=== PATIENT | female | born 1990 | race Caucasian/White ===

== ENCOUNTER 2020-09-30 05:09 | Emergency (ER) | payer BC, SELFPAY ==
[2020-09-30] VITALS (7 sets, daily range): BP systolic 109–137; BP diastolic 62–88; PULSE 48–55; RESP 15–18; TEMP 36.8; O2SAT 95–98; BMI 33.3
[2020-09-30 06:24] LABS: Basophils % 0.3 %; Lymphocytes # 1.2 10^3/uL (0.8-4.8); Mean Corpuscular HGB Conc 32.5 g/dL (30.0-36.0); Mean Corpuscular Hemoglobin 28.4 pg (28.0-34.0); Mean Corpuscular Volume 87.5 fL (81-99); Mean Platelet Volume 10.7 fL (7.4-10.4); Monocytes # 0.3 10^3/uL (0.2-0.9); Monocytes % 2.2 %; Neutrophils % 88.1 %; Nucleated Red Blood Cells % 0 %; Platelet Count 292 10^3/cmm (130-400); Red Blood Count 4.57 10^6/uL (4.1-5.3); Red Cell Distribution Width 12.4 % (12.1-15.1); White Blood Count 13.4 10^3/uL (4.0-10.0)
[2020-09-30] MEDS: sodium chloride 0.9% 1,000 ML 999 ML IV ×2 (06:30→06:50)
[2020-09-30 06:40] LABS: HCG, Serum Qual Negative (Negative)
[2020-09-30 06:41] LABS: Alanine Aminotransferase 7 U/L (0-33); Albumin Level 4.4 g/dL (3.5-5.2); Alkaline Phosphatase 85 IU/L (35-105); Anion Gap 17.6 (5-19); Aspartate Amino Transferase 14 U/L (0-32); Blood Urea Nitrogen 11 mg/dL (6-20); C Reactive Protein 0.8 mg/L (0.0-4.9); Calcium 8.9 mg/dL (8.5-10.5); Carbon Dioxide 23 mmol/L (22-29); Chloride 107 mmol/L (98-107); Globulin 2.6 g/dL (1.3-4.6); Glomerular Filtration Rate 58.3 mL/min (90-130); Glucose 130 mg/dL (65-115); Lipase 15 U/L (13-60); Osmolality Calculated 297 mOsm/kg (285-295); Potassium 4.6 mmol/L (3.5-5.1); Sodium 143 mmol/L (136-145); Total Bilirubin 1.2 mg/dL (0.15-1.2)
[2020-09-30 06:46] LABS: Creatinine Clr Calc Pharmacy 83.2141
[2020-09-30] MEDS: ondansetron 2 mg/ML SDV 2 mL 4 MG IVP ×2 (06:50→07:14)
--- NOTE | 2020-09-30 06:51 | W.ED.BACK ---
HPI - Back Pain/Injury General: Chief Complaint: Back Pain/Injury Stated Complaint: n/v/r side pain Time Seen by Provider: 09/30/20 06:15 History of Present Illness: HPI Narrative: 29-year-old female presents to the emergency room with complaints of right upper quadrant nominal pain began 11 AM yesterday. Radiates into her back she denies any hematuria no dysuria urgency or frequency her last period was 2 weeks ago was normal for her. She not had any fever sweats chills she has had some vomiting but no diarrhea. No hx of renal stones. MD elicited complaint: back pain Onset (ago): hour(s) Timing: constant and progressively worsening Severity: severe Similar Symptoms Previously: No Quality: sharp Location: right flank Radiation: abdomen Exacerbating factors: eating Relieving factors: none Associated symptoms: Reports abdominal pain, myalgias and nausea; Deny arthralgias, chills, change in bowel habits, difficulty walking, dysuria, fatigue, fecal incontinence, fever(s), hematuria, numbness, syncope, tingling/numbness/burning, urinary frequency, urinary urgency, vomiting or weakness Work related injury: No Review of Systems Const: Denies: fever(s), chills or fatigue Card: Denies: syncope GI: Reports: abdominal pain and nausea; Denies: vomiting, fecal incontinence or change in bowel habits : Denies: dysuria, urinary urgency or hematuria Neuro: Denies: difficulty walking [facility] Female Reproductive History: Date of last menstrual period: 09/16/20 Physical Exam Const: COMMON NORMALS: no acute distress GENERAL APPEARANCE: cooperative and comfortable ORIENTATION/CONSCIOUSNESS: Yes awake, Yes oriented to person, Yes oriented to place and Yes oriented to time HENMT: COMMON NORMALS: normocephalic, atraumatic, hearing grossly normal bilaterally and external ears normal HEAD & SCALP: normocephalic and atraumatic EXTERNAL EAR: Yes external ears normal Neck/C-Spine: COMMON NORMALS: no JVD Resp: COMMON NORMALS: normal respiratory effort, No retractions, No use of accessory muscles and clear to auscultation bilaterally AUSCULTATION: clear to auscultation bilaterally Cardio: COMMON NORMALS: no JVD, regular rate, regular rhythm and No murmurs present (Cardio) RATE: regular rate RHYTHM: regular rhythm GI: AUSCULTATION: Yes normoactive bowel sounds PALPATION: Yes Tenderness to palpation present (GI) (Positive Monahan sign) Details: RUQ and No Guarding due to palpation present (GI) : BLADDER/KIDNEY EXAM: Yes CVA tenderness Back/Pelvis: GENERAL BACK: Yes CVA tenderness CVA tenderness: right Extremity: COMMON NORMALS: normal to inspection, capillary refill normal, no clubbing, cyanosis or edema, no calf tenderness and no pedal edema Neuro: SENSORIUM/ORIENTATION: Yes oriented to person, Yes oriented to place and Yes oriented to time Skin: COMMON NORMALS: no rashes or lesions noted GENERAL SKIN EXAM: no rashes or lesions noted Course Vital Signs: Vital signs: Vital Signs Temperature 98.2 F 09/30/20 05:46 Pulse Rate 51 L 09/30/20 09:03 Respiratory Rate 15 09/30/20 09:03 Blood Pressure 118/62 09/30/20 09:03 Pulse Oximetry 96 09/30/20 09:03 MDM - Back Pain/Injury MDM Narrative: Medical decision making narrative: CT shows right ureterolithiasis. We will go ahead and discharge her home her pain is controlled now discharged home with tamsulosin 1 hydrocodone Zofran strain urine follow-up with Dr. Hines. Lab Data: Labs: Lab Results 09/30/20 09/30/20 09/30/20 Range/Units 06:15 06:17 06:17 WBC 13.4 H (4.0-10.0) 10^3/ uL RBC 4.57 (4.1-5.3) 10^6/u L Hgb 13.0 (11.5-15.3) g/dL Hct 40.0 (37.0-47.0) % MCV 87.5 (81-99) fL MCH 28.4 (28.0-34.0) pg MCHC 32.5 (30.0-36.0) g/dL RDW 12.4 (12.1-15.1) % Plt Count 292 (130-400) 10^3/c mm MPV 10.7 H (7.4-10.4) fL Neut % (Auto) 88.1 % Lymph % (Auto) 9.0 % Tyrrell % (Auto) 2.2 % Eos % (Auto) 0.0 % Baso % (Auto) 0.3 % Neut # (Auto) 11.80 H (1.8-7.7) 10^3/u L Lymph # (Auto) 1.2 (0.8-4.8) 10^3/u L Tyrrell # (Auto) 0.3 (0.2-0.9) 10^3/u L Eos # (Auto) 0.0 (0.0-0.8) 10^3/u L Baso # (Auto) 0.0 (0.0-0.1) 10^3/u L Nucleated RBC % (a uto) 0 % Nucleated RBCs # 0.0 /100WBC Sodium 143 (136-145) mmol/L Potassium 4.6 (3.5-5.1) mmol/L Chloride 107 (98-107) mmol/L Carbon Dioxide 23 (22-29) mmol/L Anion Gap 17.6 (5-19) BUN 11 (6-20) mg/dL Creatinine 1.1 H (0.5-0.9) mg/dL GFR Calculation 58.3 L (90-130) mL/min Glucose 130 H (65-115) mg/dL Calculated Osmolal ity 297 H (285-295) mOsm/k g Calcium 8.9 (8.5-10.5) mg/dL Total Bilirubin 1.2 (0.15-1.2) mg/dL AST 14 (0-32) U/L ALT 7 (0-33) U/L Alkaline Phosphata se 85 (35-105) IU/L C-Reactive Protein 0.8 (0.0-4.9) mg/L Total Protein 7.0 (6.6-8.7) g/dL Albumin 4.4 (3.5-5.2) g/dL Globulin 2.6 (1.3-4.6) g/dL Lipase 15 (13-60) U/L HCG, Qual (Negative) Urine Color Dark yellow (Yellow) Urine Appearance Cloudy (CLEAR) Urine pH 9 H (5-7) Ur Specific Gravit y 1.010 (1.005-1.030) Urine Protein Neg (Negative) Urine Glucose (UA) Norm (Normal) Urine Ketones Negative (Negative) Urine Blood 3+ H (Negative) Urine Nitrate Negative (Negative) Urine Bilirubin Neg (Negative) Prot Sulfosalicyli c Acd Positive (Negative) Urine Urobilinogen Norm (Negative) mg/dL Ur Leukocyte Lakshmi ase Negative (Negative) Urine RBC 15-25 H (0-2) /hpf Urine WBC None (0-5) /hpf Ur Squamous Epith Cells 0-4 H (0-5) /hpf Amorphous Sediment Not Reportable Urine Bacteria Trace (NONE) /hpf Urine Mucus Trace /hpf 09/30/20 Range/Units 06:17 WBC (4.0-10.0) 10^3/ uL RBC (4.1-5.3) 10^6/u L Hgb (11.5-15.3) g/dL Hct (37.0-47.0) % MCV (81-99) fL MCH (28.0-34.0) pg MCHC (30.0-36.0) g/dL RDW (12.1-15.1) % Plt Count (130-400) 10^3/c mm MPV (7.4-10.4) fL Neut % (Auto) % Lymph % (Auto) % Tyrrell % (Auto) % Eos % (Auto) % Baso % (Auto) % Neut # (Auto) (1.8-7.7) 10^3/u L Lymph # (Auto) (0.8-4.8) 10^3/u L Tyrrell # (Auto) (0.2-0.9) 10^3/u L Eos # (Auto) (0.0-0.8) 10^3/u L Baso # (Auto) (0.0-0.1) 10^3/u L Nucleated RBC % (a uto) % Nucleated RBCs # /100WBC Sodium (136-145) mmol/L Potassium (3.5-5.1) mmol/L Chloride (98-107) mmol/L Carbon Dioxide (22-29) mmol/L Anion Gap (5-19) BUN (6-20) mg/dL Creatinine (0.5-0.9) mg/dL GFR Calculation (90-130) mL/min Glucose (65-115) mg/dL Calculated Osmolal ity (285-295) mOsm/k g Calcium (8.5-10.5) mg/dL Total Bilirubin (0.15-1.2) mg/dL AST (0-32) U/L ALT (0-33) U/L Alkaline Phosphata se (35-105) IU/L C-Reactive Protein (0.0-4.9) mg/L Total Protein (6.6-8.7) g/dL Albumin (3.5-5.2) g/dL Globulin (1.3-4.6) g/dL Lipase (13-60) U/L HCG, Qual Negative (Negative) Urine Color (Yellow) Urine Appearance (CLEAR) Urine pH (5-7) Ur Specific Gravit y (1.005-1.030) Urine Protein (Negative) Urine Glucose (UA) (Normal) Urine Ketones (Negative) Urine Blood (Negative) Urine Nitrate (Negative) Urine Bilirubin (Negative) Prot Sulfosalicyli c Acd (Negative) Urine Urobilinogen (Negative) mg/dL Ur Leukocyte Lakshmi ase (Negative) Urine RBC (0-2) /hpf Urine WBC (0-5) /hpf Ur Squamous Epith Cells (0-5) /hpf Amorphous Sediment Urine Bacteria (NONE) /hpf Urine Mucus /hpf Discharge Plan Discharge Patient Disposition: Home Clinical Impression: Right nephrolithiasis Condition: Stable Prescriptions: New hydrocodone-acetaminophen 5-325 mg tablet 1 tab PO Q6H PRN (Reason: pain) Qty: 20 RF: 0 Zofran 4 mg tablet 4 mg PO Q6H PRN (Reason: nausea and vomiting) Qty: 14 RF: 0 tamsulosin 0.4 mg capsule 0.4 mg PO DAILY Qty: 14 RF: 0 Discharge Orders: Discharge ED (Routine); Ordered 09/30/20 Ordered By: Crow Hinojosa Discharge Diet: Usual diet Patient Instructions: Opioid Safety Activity Restrictions/Additional Instructions: manager voice will call with follow-up with Dr. Hines. Strain urine until stone passes. 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
--- NOTE | 2020-09-30 06:53 | CTR_ITS ---
PROCEDURE INFORMATION: Exam: CT Abdomen And Pelvis With Contrast Exam date and time: 09/30/2020 6:53 AM Age: 29 years old Clinical indication: Abdominal pain; Prior surgery; Additional info: Abd pain TECHNIQUE: Imaging protocol: Computed tomography of the abdomen and pelvis with contrast. Radiation optimization: All CT scans at this facility use at least one of these dose optimization techniques: automated exposure control; mA and/or kV adjustment per patient size (includes targeted exams where dose is matched to clinical indication); or iterative reconstruction. Contrast material: OMNI 300; Contrast volume: 95 ml; Contrast route: INTRAVENOUS (IV); COMPARISON: No relevant prior studies available. RADIATION DOSE METRICS: Total DLP (mGy-cm): 1818.47 FINDINGS: Liver: Normal. No mass. Gallbladder and bile ducts: Normal. No calcified stones. No ductal dilation. Pancreas: Normal. No ductal dilation. Spleen: Small calcified splenic granuloma. A small inferior splenule is present. Adrenal glands: Normal. No mass. Kidneys and ureters: The right kidney shows moderate pelviectasis with mild perinephric stranding, with a 4.2 mm intraureteral calculus at the mid L3 level. Right renal posterior upper pole measuring 2.5 mm calyceal calculus. Left renal 4.4 mm benign cyst. Stomach and bowel: Unremarkable. No obstruction. No mucosal thickening. Appendix: The vermiform appendix is normal. Intraperitoneal space: Unremarkable. No free air. No significant fluid collection. Vasculature: Right pelvic calcified phlebolith. Lymph nodes: No enlarged lymph nodes. Urinary bladder: The urinary bladder is decompressed and difficult to assess. Reproductive: Right ovarian 18.4 mm physiologic follicle. Anterior lower uterine Caesarean section defect suggested (series 601, image 45). Bones/joints: Bilateral L5 spondylolysis. Soft tissues: Unremarkable. CT/CT abdomen pelvis w con* [id number] IMPRESSION: 1. Right obstructive uropathy secondary to an abdominal ureteral calculus. 2. Right renal calyceal lithiasis. 3. Left renal benign cyst. No follow-up imaging is recommended. COMMENTS: Consistent with the [employer]'s Incidental Findings Committee white paper (J Am Vivian Radiol 2018): Any incidental renal lesion less than 1 cm or classified as too small to characterize, or any incidental cystic renal lesion characterized as simple-appearing, is likely benign. No follow-up imaging is recommended for these lesions per consensus recommendations based on imaging criteria. Radiation Dose CTDIVOL = (mGy): DLP = 1818.47 (mGy-cm)
[2020-09-30] MEDS: iohexol 300 mg/mL 100 mL Btl IV (07:14)
[2020-09-30] MEDS: morphine 4 mg/mL SDV 1 mL IVP ×2 (07:15→08:34)
[2020-09-30 08:30] LABS: Glucose Urine UA Norm (Normal); Ketones Urine Negative (Negative); Protein Urine Neg (Negative); Urine Appearance Cloudy (CLEAR); Urine Color Dark Yellow (Yellow); pH Urine 9 (5-7)
[2020-09-30 08:31] LABS: Add Urine Culture? Yes; Add Urine Microscopic? YES; Bacteria Urine TRACE /hpf; Bilirubin Urine Neg (Negative); Blood Urine 3+ (Negative); Leukocyte Esterase Urine Negative (Negative); Mucus Urine TRACE /hpf; Nitrate Urine Negative (Negative); RBC Urine 15-25 /hpf (0-2); Squamous Epithelial Cell Urine 0-4 /hpf (0-5); Sulfosalicylic Acid Urine Positive (Negative); Urobilinogen Urine Norm (Negative)
--- NOTE | 2020-10-01 10:21 | DCPLANNER ---
transitions manager rn had message to schedule a follow up appointment for patient with Dr. Hines. transitions manager rn called the office of Dr. Hines, spoke with Janee, gave clinic patients information. transitions manager rn was told that patients information would be printed and reviewed. Clinic will call patient with appointment information.
--- NOTE | 2020-10-02 07:46 | DCPLANNER ---
Patient has a follow up appointment scheduled for Friday, October 02, 2020 at 1:[address] Hines. Clinic will call patient with appointment information.
--- NOTE | 2020-11-07 11:16 | DCPLANNER ---
Patient has a follow up appointment scheduled for 10.02.[address] Hines - patient did attend appointment.
== END 2020-09-30 09:08 | disposition home or self-care (01) ==
PROVIDERS: Emergency Medicine; Emergency Provider Family Medicine
DX: N20.0 Calculus of kidney (principal)
CPT/HCPCS: 74177; 80053; 81001; 83690; 84703; 85025; 86140; 87086; 96361; 96374; 96375; 96376; 99284; J2270; J2405; J7030; Q9967

== ENCOUNTER 2020-10-02 09:19 | Outpatient (CLI) | payer BC, SELFPAY ==
--- NOTE | 2020-10-02 10:00 | XR_ITS ---
WS: [id number] KUB, AP view, 10/02/2020 Clinical Data: KIDNEY STONE Comparison: CT abdomen and pelvis, 09/30/2020. Findings: There is a 0.4 cm calcification overlying the right L3 transverse process which may be the ureteral c alculus noted on CT abdomen and pelvis. There is also a 0.4 cm calculus on the right side of the true pelvis. Fecal material obscures much of the right kidney. No left renal calcifications are seen. The remainde r the abdomen is nonremarkable. XR/XR KUB [id number] Impression: 1. Small calcification overlying right third transverse process which may be a proximal ureteral calculus. 2. Right true pelvic calcification which may represent a phlebolith.
== END 2020-10-02 09:20 | disposition home or self-care (01) ==
PROVIDERS: Visit Provider Urology
DX: N20.0 Calculus of kidney (principal); R30.0 Dysuria
CPT/HCPCS: 74018; 81003; 87086

== ENCOUNTER 2020-10-07 07:00 | Outpatient (CLI) | payer BC, SELFPAY ==
--- NOTE | 2020-10-07 07:08 | XRR_ITS ---
PROCEDURE INFORMATION: Exam: XR Abdomen Exam date and time: 10/07/2020 7:08 AM Age: 29 years old Clinical indication: Condition or disease; Kidney or ureter condition; Calculus (stone) in ureter; Prior surgery; Surgery type: C section; Additional info: Ureteral calculus TECHNIQUE: Imaging protocol: XR of the abdomen. Views: Frontal supine view of the abdomen. 1 View. COMPARISON: CR XR KUB [id number] 10/02/2020 10:09 AM FINDINGS: Gastrointestinal tract: Normal. No bowel dilation. Vasculature: A small phlebolith is present in the right lower pelvis. No other calcifications are seen in the projection of the kidneys ureters or urinary bladder. Bones/joints: Unremarkable. XR/XR KUB [id number] IMPRESSION: No acute abnormality. The right ureteral calculus seen on previous radiograph is no longer identified.
== END 2020-10-07 07:01 | disposition home or self-care (01) ==
PROVIDERS: Visit Provider Nurse Practitioner Family
DX: N20.1 Calculus of ureter (principal)
CPT/HCPCS: 74018; 81003

== ENCOUNTER → 2021-12-22 15:07 | Outpatient (BNVA) | payer BC, SELFPAY | PROVIDERS: Visit Provider Obstetrics & Gynecology | DX: Z01.419 Encounter for gynecological examination (general) (routine) without abnormal findings (principal) | CPT/HCPCS: 87624 ==

== ENCOUNTER → 2022-01-30 13:50 | Outpatient (BNVA) | payer BC, SELFPAY | PROVIDERS: Visit Provider Obstetrics & Gynecology | DX: R87.612 Low grade squamous intraepithelial lesion on cytologic smear of cervix (LGSIL) (principal) | CPT/HCPCS: 88305 ==

== ENCOUNTER → 2022-10-19 11:00 | Outpatient (BNVA) | payer BC, SELFPAY | PROVIDERS: Visit Provider Obstetrics & Gynecology | DX: L90.0 Lichen sclerosus et atrophicus (principal) | CPT/HCPCS: 87624 ==